=== PATIENT | male | born 1960 | race Two or more races ===

== ENCOUNTER 2020-11-06 13:41 | Inpatient (IN) | payer MEDICAID, OTHER ==
[~2020-11-06] VITALS: Ht 165.1 cm; Wt 80.7 kg
[2020-11-06 14:37] LABS: Basophils # (auto) 0 10 ^3/uL (0-0.2); Basophils % (auto) 0.2 % (0.0-2.0); Eosinophils # (auto) 0 10 ^3/uL (0-0.8); Eosinophils % (auto) 0.3 % (0.0-7.0); Hematocrit 44.8 % (41.0-53.0); Hemoglobin 15.9 g/dL (13.5-17.5); Lymphocytes # (auto) 0.9 10 ^3/uL (0.4-5.4); Lymphocytes % (auto) 16.3 % (10.0-50.0); Mean Corpuscular Hemoglobin 33.5 pg (28.0-32.0); Mean Corpuscular Hgb Conc. 35.6 g/dL (32.0-36.0); Mean Corpuscular Volume 94.3 fL (80.0-100.0); Monocytes # (auto) 0.3 10 ^3/uL (0-1.3); Neutrophils # (auto) 4.4 10 ^3/uL (1.6-8.6); Neutrophils % (auto) 78.2 % (37.0-80.0); Nucleated Red Blood Cells % 0.1 %; Platelet Count (auto) 150 10^3/uL (140-450); Red Blood Cells 4.75 10^6/uL (4.5-5.90); White Blood Cell 5.6 10^3/uL (4.4-10.8)
[2020-11-06 14:43] LABS: Albumin 2.9 g/dL (3.4-5.0); Anion Gap 10 (5-15); Blood Urea Nitrogen 6 mg/dL (7-18); Carbon Dioxide 20 mmol/L (21-32); Chloride 108 mmol/L (98-107); Glucose 118 mg/dL (74-106); Potassium 3.4 mmol/L (3.5-5.1); Sodium 138 mmol/L (136-145)
[2020-11-06 14:49] LABS: Alanine Aminotransferase 32 U/L (16-61); Alkaline Phosphatase 50 U/L (45-117); Aspartate Aminotransferase 48 U/L (15-37); BUN/Creatinine Ratio 7.3; Bilirubin, Total 0.6 mg/dL (0.2-1.0); GFR African American 123 mL/min; GFR Non-African American 102 mL/min; Total Protein 7.4 g/dL (6.4-8.2)
[2020-11-06 15:17] LABS: Urine Bacteria NONE SEEN /hpf (None Seen); Urine Blood Negative /uL (Negative); Urine Specific Gravity 1.007 (1.001-1.035); Urine WBC <1 /hpf (0 - 3)
[2020-11-06] MEDS ORDERED: IOHEXOL 300 MG/ML 100ML BOTTLE IJ ONE (16:48)
[2020-11-06] MEDS ORDERED: cefTRIAXone 1GM/50ML D5W 50 ML IV ONE (17:45)
[2020-11-06] MEDS ORDERED: AZITHROMYCIN 500MG/ 250ML 250 ML IV ONE (17:45)
[2020-11-06] MEDS ORDERED: MORPHINE SULF INJ 2 MG/ML SYRINGE 1ML IV PRN (18:45)
[2020-11-06] MEDS ORDERED: REMDESIVIR PER PHARMACY 0 ML IV SCH (18:45)
[2020-11-06] MEDS ORDERED: NITROGLYCERIN 0.4 MG SL TAB SL PRN (18:45)
[2020-11-06] MEDS ORDERED: IVERMECTIN 3 MG TAB PO ONE (18:52)
[2020-11-06] MEDS: ASCORBIC ACID 1,000 MG TAB PO SCH (19:04)
[2020-11-06] MEDS: DexAMETHasone SOD PHOS 10MG/1ML VIAL INJ IV SCH (19:04)
[2020-11-06] MEDS: CHOLECALCIFEROL (VITD3) 2,000 UNIT CAP/TAB PO SCH (19:04)
[2020-11-06] MEDS ORDERED: REMDESIVIR 200 MG in NS 210ml LOADING DOSE ADULT IV ONE (20:00)
[2020-11-06] MEDS: ZINC SULFATE 220mg CAP or TAB PO SCH (20:20)
[2020-11-06] MEDS: ENOXAPARIN SOD 40 MG/0.4 ML SYRINGE SC SCH (20:20)
[2020-11-06 20:30] VITALS: BP 111/66
[2020-11-06 21:10] LABS: Magnesium 2.1 mg/dL (1.6-2.6)
[2020-11-06 21:19] LABS: CRP High Sensitivity 12.5 mg/dL (< 0.3)
[2020-11-06 22:00] VITALS: BP 111/66
[2020-11-06] MEDS ORDERED: IPRATROPIUM BROMIDE HFA AER IN SCH (22:00)
[2020-11-06] MEDS: BUDESONIDE (INHALATION) 180 MCG IH IN SCH (22:00)
[2020-11-06] MEDS ORDERED: INFLUENZA QUAD 2020-2021 0.5 ML SYRG IM ONE (22:15)
[2020-11-07] VITALS (8 sets, daily range): BP systolic 100–116; BP diastolic 53–72
[2020-11-07 06:50] LABS: Basophils # (auto) 0 10 ^3/uL (0-0.2); Basophils % (auto) 0.2 % (0.0-2.0); Eosinophils # (auto) 0 10 ^3/uL (0-0.8); Hematocrit 44.5 % (41.0-53.0); Hemoglobin 15.6 g/dL (13.5-17.5); Lymphocytes # (auto) 0.5 10 ^3/uL (0.4-5.4); Lymphocytes % (auto) 20.4 % (10.0-50.0); Mean Corpuscular Hemoglobin 33.1 pg (28.0-32.0); Mean Corpuscular Hgb Conc. 35.1 g/dL (32.0-36.0); Mean Corpuscular Volume 94.3 fL (80.0-100.0); Monocytes # (auto) 0.2 10 ^3/uL (0-1.3); Monocytes % (auto) 8.5 % (0.0-12.0); Neutrophils # (auto) 1.9 10 ^3/uL (1.6-8.6); Neutrophils % (auto) 70.9 % (37.0-80.0); Nucleated Red Blood Cells % 0.2 %; Platelet Count (auto) 182 10^3/uL (140-450); Red Blood Cells 4.72 10^6/uL (4.5-5.90); Red Cell Distribution Width 12.8 % (11.8-14.3); White Blood Cell 2.7 10^3/uL (4.4-10.8)
[2020-11-07] MEDS: ENOXAPARIN SOD 40 MG/0.4 ML SYRINGE SC SCH ×2 (06:57→18:13)
[2020-11-07] MEDS ORDERED: IVERMECTIN 3 MG TAB PO ONE (07:00)
[2020-11-07 07:10] LABS: Albumin 2.5 g/dL (3.4-5.0); Calcium 8.3 mg/dL (8.5-10.1); Potassium 4.2 mmol/L (3.5-5.1)
[2020-11-07 07:13] LABS: BUN/Creatinine Ratio 10.6
[2020-11-07 07:15] LABS: Bilirubin, Total 0.4 mg/dL (0.2-1.0); Total Protein 6.9 g/dL (6.4-8.2)
[2020-11-07] MEDS: BUDESONIDE (INHALATION) 180 MCG IH IN SCH ×2 (07:36→19:16)
[2020-11-07] MEDS: DexAMETHasone SOD PHOS 10MG/1ML VIAL INJ IV SCH (10:15)
[2020-11-07] MEDS: ZINC SULFATE 220mg CAP or TAB PO SCH (10:15)
[2020-11-07] MEDS: cefTRIAXone 1GM/50ML D5W 50 ML IV SCH (10:15)
[2020-11-07] MEDS: ASCORBIC ACID 1,000 MG TAB PO SCH (10:15)
[2020-11-07] MEDS: AZITHROMYCIN 500MG/ 250ML 250 ML IV SCH (10:15)
[2020-11-07] MEDS: CHOLECALCIFEROL (VITD3) 2,000 UNIT CAP/TAB PO SCH (10:16)
[2020-11-07] MEDS: REMDESIVIR 100mg 100 MG in SODIUM CHL 0.9% 230 ML IV SCH (15:15)
[2020-11-07] MEDS: TAMSULOSIN HYDROCHLORIDE 0.4 MG CAP PO SCH (18:13)
[2020-11-07] MEDS: ALBUTEROL SULF HFA 90MCG INH 200DOSE IN PRN (19:15)
[2020-11-08] VITALS (7 sets, daily range): BP systolic 90–119; BP diastolic 47–71
[2020-11-08] MEDS: ENOXAPARIN SOD 40 MG/0.4 ML SYRINGE SC SCH ×2 (05:59→18:23)
[2020-11-08 07:14] LABS: Potassium 3.6 mmol/L (3.5-5.1)
[2020-11-08 07:15] LABS: Basophils # (auto) 0 10 ^3/uL (0-0.2); Basophils % (auto) 0.1 % (0.0-2.0); Eosinophils # (auto) 0 10 ^3/uL (0-0.8); Hematocrit 43.2 % (41.0-53.0); Hemoglobin 15.4 g/dL (13.5-17.5); Lymphocytes # (auto) 0.9 10 ^3/uL (0.4-5.4); Lymphocytes % (auto) 11.9 % (10.0-50.0); Mean Corpuscular Hemoglobin 33.3 pg (28.0-32.0); Mean Corpuscular Hgb Conc. 35.6 g/dL (32.0-36.0); Mean Corpuscular Volume 93.5 fL (80.0-100.0); Monocytes # (auto) 0.7 10 ^3/uL (0-1.3); Monocytes % (auto) 9.5 % (0.0-12.0); Neutrophils # (auto) 5.7 10 ^3/uL (1.6-8.6); Neutrophils % (auto) 78.5 % (37.0-80.0); Nucleated Red Blood Cells % 0.1 %; Platelet Count (auto) 255 10^3/uL (140-450); Red Blood Cells 4.62 10^6/uL (4.5-5.90); Red Cell Distribution Width 12.9 % (11.8-14.3); White Blood Cell 7.3 10^3/uL (4.4-10.8)
[2020-11-08 07:20] LABS: BUN/Creatinine Ratio 18.8; Calcium 8.3 mg/dL (8.5-10.1)
[2020-11-08] MEDS: ZINC SULFATE 220mg CAP or TAB PO SCH (09:15)
[2020-11-08] MEDS: CHOLECALCIFEROL (VITD3) 2,000 UNIT CAP/TAB PO SCH (09:15)
[2020-11-08] MEDS: cefTRIAXone 1GM/50ML D5W 50 ML IV SCH (09:15)
[2020-11-08] MEDS: ASCORBIC ACID 1,000 MG TAB PO SCH (09:15)
[2020-11-08] MEDS: DexAMETHasone SOD PHOS 10MG/1ML VIAL INJ IV SCH (09:16)
[2020-11-08] MEDS: ALBUTEROL SULF HFA 90MCG INH 200DOSE IN PRN ×2 (09:33→19:16)
[2020-11-08] MEDS: BUDESONIDE (INHALATION) 180 MCG IH IN SCH ×2 (09:33→19:14)
[2020-11-08] MEDS: AZITHROMYCIN 500MG/ 250ML 250 ML IV SCH (10:15)
[2020-11-08] MEDS: REMDESIVIR 100mg 100 MG in SODIUM CHL 0.9% 230 ML IV SCH (15:17)
[2020-11-08] MEDS: TAMSULOSIN HYDROCHLORIDE 0.4 MG CAP PO SCH (18:23)
[2020-11-09 06:15] LABS: Basophils # (auto) 0 10 ^3/uL (0-0.2); Eosinophils # (auto) 0 10 ^3/uL (0-0.8); Hematocrit 43.9 % (41.0-53.0); Hemoglobin 15.5 g/dL (13.5-17.5); Lymphocytes # (auto) 1.2 10 ^3/uL (0.4-5.4); Lymphocytes % (auto) 12.6 % (10.0-50.0); Mean Corpuscular Hgb Conc. 35.3 g/dL (32.0-36.0); Mean Corpuscular Volume 93.5 fL (80.0-100.0); Monocytes # (auto) 0.9 10 ^3/uL (0-1.3); Monocytes % (auto) 9.1 % (0.0-12.0); Neutrophils # (auto) 7.4 10 ^3/uL (1.6-8.6); Neutrophils % (auto) 78.3 % (37.0-80.0); Nucleated Red Blood Cells % 0.1 %; Platelet Count (auto) 289 10^3/uL (140-450); Red Cell Distribution Width 13.1 % (11.8-14.3); White Blood Cell 9.4 10^3/uL (4.4-10.8)
[2020-11-09] MEDS: ENOXAPARIN SOD 40 MG/0.4 ML SYRINGE SC SCH ×2 (06:28→17:43)
[2020-11-09 06:36] LABS: Potassium 3.6 mmol/L (3.5-5.1)
[2020-11-09 07:01] LABS: Albumin 2.7 g/dL (3.4-5.0)
[2020-11-09 07:05] LABS: Bilirubin, Direct 0.2 mg/dL (0-0.2); Bilirubin, Total 0.4 mg/dL (0.2-1.0); Total Protein 6.8 g/dL (6.4-8.2)
[2020-11-09] MEDS: BUDESONIDE (INHALATION) 180 MCG IH IN SCH ×2 (07:28→19:31)
[2020-11-09 08:10] VITALS: BP 101/69
[2020-11-09] MEDS: ASCORBIC ACID 1,000 MG TAB PO SCH (08:31)
[2020-11-09] MEDS: cefTRIAXone 1GM/50ML D5W 50 ML IV SCH (08:31)
[2020-11-09] MEDS: ZINC SULFATE 220mg CAP or TAB PO SCH (08:31)
[2020-11-09] MEDS: CHOLECALCIFEROL (VITD3) 2,000 UNIT CAP/TAB PO SCH (08:31)
[2020-11-09] MEDS: DexAMETHasone SOD PHOS 10MG/1ML VIAL INJ IV SCH (08:32)
[2020-11-09] MEDS ORDERED: DIVA250T4 PO ×2 (09:47)
[2020-11-09] MEDS ORDERED: GABA300C10 PO (09:47)
[2020-11-09] MEDS ORDERED: LEVO25TA6 PO (09:47)
[2020-11-09] MEDS ORDERED: TRAZ-181 PO (09:47)
[2020-11-09] MEDS ORDERED: RIS1T PO ×2 (09:47)
[2020-11-09] MEDS ORDERED: PANT1INJ3 PO (09:47)
[2020-11-09] MEDS: AZITHROMYCIN 500MG/ 250ML 250 ML IV SCH (10:03)
[2020-11-09] MEDS ORDERED: FUROSEMIDE 20 MG/2 ML VIAL IV ONE (11:00)
[2020-11-09 13:00] VITALS: BP 107/71
[2020-11-09] MEDS ORDERED: PANTOPRAZOLE 40 MG TAB PO ONE (13:45)
[2020-11-09] MEDS ORDERED: guaiFENesin 200 MG/10 ML UD PO PRN (13:45)
[2020-11-09] MEDS: REMDESIVIR 100mg 100 MG in SODIUM CHL 0.9% 230 ML IV SCH (15:16)
[2020-11-09 17:12] VITALS: BP 103/62
[2020-11-09] MEDS: TAMSULOSIN HYDROCHLORIDE 0.4 MG CAP PO SCH (17:43)
[2020-11-09] MEDS: ALBUTEROL SULF HFA 90MCG INH 200DOSE IN PRN (19:31)
[2020-11-09 20:51] VITALS: BP 96/54
[2020-11-10] MEDS: ENOXAPARIN SOD 40 MG/0.4 ML SYRINGE SC SCH ×2 (05:49→19:14)
[2020-11-10 05:59] VITALS: BP 113/74
[2020-11-10] MEDS: BUDESONIDE (INHALATION) 180 MCG IH IN SCH ×2 (07:25→19:09)
[2020-11-10 07:34] LABS: Albumin 2.8 g/dL (3.4-5.0); Calcium 8.5 mg/dL (8.5-10.1); Potassium 3.6 mmol/L (3.5-5.1)
[2020-11-10 07:49] LABS: BUN/Creatinine Ratio 26.7; Bilirubin, Total 0.5 mg/dL (0.2-1.0); Total Protein 6.9 g/dL (6.4-8.2)
[2020-11-10 08:05] LABS: Basophils # (auto) 0 10 ^3/uL (0-0.2); Basophils % (auto) 0.1 % (0.0-2.0); Eosinophils # (auto) 0 10 ^3/uL (0-0.8); Eosinophils % (auto) 0.3 % (0.0-7.0); Hematocrit 44.7 % (41.0-53.0); Hemoglobin 15.7 g/dL (13.5-17.5); Lymphocytes # (auto) 1.7 10 ^3/uL (0.4-5.4); Lymphocytes % (auto) 17.2 % (10.0-50.0); Mean Corpuscular Hemoglobin 32.9 pg (28.0-32.0); Mean Corpuscular Hgb Conc. 35.2 g/dL (32.0-36.0); Mean Corpuscular Volume 93.4 fL (80.0-100.0); Monocytes # (auto) 0.9 10 ^3/uL (0-1.3); Monocytes % (auto) 8.9 % (0.0-12.0); Neutrophils # (auto) 7.3 10 ^3/uL (1.6-8.6); Neutrophils % (auto) 73.5 % (37.0-80.0); Nucleated Red Blood Cells % 0.6 %; Platelet Count (auto) 310 10^3/uL (140-450); Red Blood Cells 4.78 10^6/uL (4.5-5.90); Red Cell Distribution Width 13.2 % (11.8-14.3); White Blood Cell 9.9 10^3/uL (4.4-10.8)
[2020-11-10] MEDS: cefTRIAXone 1GM/50ML D5W 50 ML IV SCH (08:51)
[2020-11-10 09:00] VITALS: BP 109/68
[2020-11-10] MEDS ORDERED: FUROSEMIDE 20 MG/2 ML VIAL IV SCH (10:00)
[2020-11-10] MEDS: DexAMETHasone SOD PHOS 10MG/1ML VIAL INJ IV SCH (10:58)
[2020-11-10] MEDS: PANTOPRAZOLE 40 MG TAB PO SCH (10:59)
[2020-11-10] MEDS: ASCORBIC ACID 1,000 MG TAB PO SCH (10:59)
[2020-11-10] MEDS: AZITHROMYCIN 500MG/ 250ML 250 ML IV SCH (10:59)
[2020-11-10] MEDS: ZINC SULFATE 220mg CAP or TAB PO SCH (10:59)
[2020-11-10] MEDS: CHOLECALCIFEROL (VITD3) 2,000 UNIT CAP/TAB PO SCH (11:00)
[2020-11-10 13:34] VITALS: BP 103/62
[2020-11-10 14:01] VITALS: BP 103/62
[2020-11-10] MEDS: REMDESIVIR 100mg 100 MG in SODIUM CHL 0.9% 230 ML IV SCH (15:37)
[2020-11-10 17:00] VITALS: BP 113/70
[2020-11-10] MEDS: ALBUTEROL SULF HFA 90MCG INH 200DOSE IN PRN (19:09)
[2020-11-10] MEDS: TAMSULOSIN HYDROCHLORIDE 0.4 MG CAP PO SCH (19:14)
[2020-11-10 22:38] VITALS: BP 95/54
[2020-11-11] MEDS: ENOXAPARIN SOD 40 MG/0.4 ML SYRINGE SC SCH ×2 (06:22→18:48)
[2020-11-11 07:00] VITALS: BP 102/65
[2020-11-11 07:11] LABS: Hematocrit 44.6 % (41.0-53.0); Mean Corpuscular Hemoglobin 33.5 pg (28.0-32.0); Mean Corpuscular Hgb Conc. 35.9 g/dL (32.0-36.0); Mean Corpuscular Volume 93.3 fL (80.0-100.0); Platelet Count (auto) 312 10^3/uL (140-450); Red Blood Cells 4.78 10^6/uL (4.5-5.90); Red Cell Distribution Width 13.1 % (11.8-14.3); White Blood Cell 8.1 10^3/uL (4.4-10.8)
[2020-11-11 07:19] LABS: Calcium 8.3 mg/dL (8.5-10.1); Potassium 3.3 mmol/L (3.5-5.1)
[2020-11-11 07:22] LABS: Band Neutrophils % (manual) 0; Basophils % (manual) 0 (0.0-2.0); Blast Cells 0; Metamyelocytes % 0; Myelocytes % 0; Promyelocytes % 0
[2020-11-11] MEDS: ALBUTEROL SULF HFA 90MCG INH 200DOSE IN PRN ×2 (08:35→20:03)
[2020-11-11] MEDS: BUDESONIDE (INHALATION) 180 MCG IH IN SCH ×2 (08:36→20:03)
[2020-11-11 09:00] VITALS: BP 98/70
[2020-11-11 09:05] LABS: Eosinophils % (manual) 4 (0-7); Lymphocytes % (manual) 20 (10.0-50.0); Monocytes % (manual) 3 (0-12); Reactive Lymphocytes 5
[2020-11-11] MEDS: cefTRIAXone 1GM/50ML D5W 50 ML IV SCH (09:07)
[2020-11-11] MEDS: ZINC SULFATE 220mg CAP or TAB PO SCH (09:08)
[2020-11-11] MEDS: PANTOPRAZOLE 40 MG TAB PO SCH (09:08)
[2020-11-11] MEDS: DexAMETHasone SOD PHOS 10MG/1ML VIAL INJ IV SCH (09:08)
[2020-11-11] MEDS: CHOLECALCIFEROL (VITD3) 2,000 UNIT CAP/TAB PO SCH (09:09)
[2020-11-11] MEDS: ASCORBIC ACID 1,000 MG TAB PO SCH (09:09)
[2020-11-11] MEDS: AZITHROMYCIN 500MG/ 250ML 250 ML IV SCH (09:32)
[2020-11-11] MEDS ORDERED: ENOXAPARIN SOD 80 MG/0.8ML SYRINGE SC ONE (10:45)
[2020-11-11] MEDS ORDERED: POTASSIUM CHL 20 Meq TABLET PO ONE (10:45)
[2020-11-11] MEDS ORDERED: ENOXAPARIN SOD 100 MG/1 ML SYRINGE SC ONE (10:45)
[2020-11-11] MEDS ORDERED: IOHEXOL 350 MG/ML 100ML IJ ONE (11:30)
[2020-11-11 12:58] VITALS: BP 108/74
[2020-11-11 16:45] VITALS: BP 113/58
[2020-11-11] MEDS: TAMSULOSIN HYDROCHLORIDE 0.4 MG CAP PO SCH (17:25)
[2020-11-11 21:45] VITALS: BP_SYST 102; BP_SYST 99; BP_DIAS 51; BP_DIAS 54
[2020-11-12 05:00] VITALS: BP 87/56
[2020-11-12] MEDS: ENOXAPARIN SOD 40 MG/0.4 ML SYRINGE SC SCH ×2 (06:21→18:18)
[2020-11-12] MEDS: BUDESONIDE (INHALATION) 180 MCG IH IN SCH ×2 (06:30→22:00)
[2020-11-12 06:36] VITALS: BP 90/61
[2020-11-12 06:47] LABS: Hematocrit 43.7 % (41.0-53.0); Hemoglobin 15.5 g/dL (13.5-17.5); Mean Corpuscular Hemoglobin 33.4 pg (28.0-32.0); Mean Corpuscular Hgb Conc. 35.6 g/dL (32.0-36.0); Platelet Count (auto) 342 10^3/uL (140-450); Red Blood Cells 4.65 10^6/uL (4.5-5.90); Red Cell Distribution Width 13.5 % (11.8-14.3); White Blood Cell 8.7 10^3/uL (4.4-10.8)
[2020-11-12 06:56] LABS: Basophils % (manual) 0 (0.0-2.0); Blast Cells 0; Myelocytes % 0; Promyelocytes % 0
[2020-11-12 07:06] LABS: Potassium 3.7 mmol/L (3.5-5.1)
[2020-11-12 07:15] LABS: BUN/Creatinine Ratio 20.8; CRP High Sensitivity 2.19 mg/dL (< 0.3)
[2020-11-12 09:26] VITALS: BP 88/53
[2020-11-12] MEDS: cefTRIAXone 1GM/50ML D5W 50 ML IV SCH (09:42)
[2020-11-12] MEDS: DexAMETHasone SOD PHOS 10MG/1ML VIAL INJ IV SCH (09:42)
[2020-11-12] MEDS: ASCORBIC ACID 1,000 MG TAB PO SCH (09:44)
[2020-11-12] MEDS: ZINC SULFATE 220mg CAP or TAB PO SCH (09:44)
[2020-11-12] MEDS: PANTOPRAZOLE 40 MG TAB PO SCH (09:44)
[2020-11-12] MEDS: CHOLECALCIFEROL (VITD3) 2,000 UNIT CAP/TAB PO SCH (09:44)
[2020-11-12 10:12] LABS: Band Neutrophils % (manual) 5; Eosinophils % (manual) 1 (0-7); Lymphocytes % (manual) 14 (10.0-50.0); Metamyelocytes % 1; Monocytes % (manual) 5 (0-12); Reactive Lymphocytes 1
[2020-11-12 13:13] VITALS: BP 141/74
[2020-11-12] MEDS ORDERED: FUROSEMIDE 20 MG/2 ML VIAL IV ONE (14:15)
[2020-11-12 16:23] VITALS: BP 108/71
[2020-11-12] MEDS: TAMSULOSIN HYDROCHLORIDE 0.4 MG CAP PO SCH (18:18)
[2020-11-12 22:00] VITALS: BP 112/70
[2020-11-13 05:00] VITALS: BP 97/60
[2020-11-13 05:55] LABS: Hematocrit 45.8 % (41.0-53.0); Hemoglobin 16.3 g/dL (13.5-17.5); Mean Corpuscular Hemoglobin 33.5 pg (28.0-32.0); Mean Corpuscular Hgb Conc. 35.7 g/dL (32.0-36.0); Mean Corpuscular Volume 93.9 fL (80.0-100.0); Platelet Count (auto) 396 10^3/uL (140-450); Red Blood Cells 4.88 10^6/uL (4.5-5.90); Red Cell Distribution Width 13.1 % (11.8-14.3); White Blood Cell 8.5 10^3/uL (4.4-10.8)
[2020-11-13 06:11] LABS: Basophils % (manual) 0 (0.0-2.0); Blast Cells 0; Promyelocytes % 0; Reactive Lymphocytes 0
[2020-11-13 06:19] LABS: BUN/Creatinine Ratio 23.6; Potassium 3.5 mmol/L (3.5-5.1)
[2020-11-13 06:45] LABS: Band Neutrophils % (manual) 9; Eosinophils % (manual) 1 (0-7); Lymphocytes % (manual) 17 (10.0-50.0); Metamyelocytes % 2; Monocytes % (manual) 5 (0-12); Myelocytes % 1
[2020-11-13] MEDS: BUDESONIDE (INHALATION) 180 MCG IH IN SCH ×2 (07:13→18:49)
[2020-11-13] MEDS: ENOXAPARIN SOD 40 MG/0.4 ML SYRINGE SC SCH ×2 (07:36→18:20)
[2020-11-13 08:00] VITALS: BP 106/55
[2020-11-13] MEDS: cefTRIAXone 1GM/50ML D5W 50 ML IV SCH (10:01)
[2020-11-13] MEDS: DexAMETHasone SOD PHOS 10MG/1ML VIAL INJ IV SCH (10:02)
[2020-11-13] MEDS: FUROSEMIDE 20 MG/2 ML VIAL IV SCH (10:02)
[2020-11-13] MEDS: ZINC SULFATE 220mg CAP or TAB PO SCH (10:02)
[2020-11-13] MEDS: CHOLECALCIFEROL (VITD3) 2,000 UNIT CAP/TAB PO SCH (10:03)
[2020-11-13] MEDS: PANTOPRAZOLE 40 MG TAB PO SCH (10:03)
[2020-11-13] MEDS: ASCORBIC ACID 1,000 MG TAB PO SCH (10:03)
[2020-11-13 10:49] VITALS: BP 106/57
[2020-11-13 12:00] VITALS: BP 114/73
[2020-11-13 16:00] VITALS: BP 113/53
[2020-11-13] MEDS: TAMSULOSIN HYDROCHLORIDE 0.4 MG CAP PO SCH (18:19)
[2020-11-13] MEDS: ALBUTEROL SULF HFA 90MCG INH 200DOSE IN PRN (18:49)
[2020-11-13 22:00] VITALS: BP 100/67
[2020-11-14 05:00] VITALS: BP 103/68
[2020-11-14] MEDS: BUDESONIDE (INHALATION) 180 MCG IH IN SCH ×2 (06:12→21:42)
[2020-11-14] MEDS: ALBUTEROL SULF HFA 90MCG INH 200DOSE IN PRN ×2 (06:12→21:42)
[2020-11-14] MEDS: ENOXAPARIN SOD 40 MG/0.4 ML SYRINGE SC SCH ×2 (06:14→17:58)
[2020-11-14 08:00] VITALS: BP_SYST 106; BP_SYST 109; BP_DIAS 55; BP_DIAS 69
[2020-11-14] MEDS: PANTOPRAZOLE 40 MG TAB PO SCH (09:35)
[2020-11-14] MEDS: cefTRIAXone 1GM/50ML D5W 50 ML IV SCH (09:35)
[2020-11-14] MEDS: ZINC SULFATE 220mg CAP or TAB PO SCH (09:35)
[2020-11-14] MEDS: DexAMETHasone SOD PHOS 10MG/1ML VIAL INJ IV SCH (09:35)
[2020-11-14] MEDS: ASCORBIC ACID 1,000 MG TAB PO SCH (09:36)
[2020-11-14] MEDS: FUROSEMIDE 20 MG/2 ML VIAL IV SCH (09:36)
[2020-11-14] MEDS: CHOLECALCIFEROL (VITD3) 2,000 UNIT CAP/TAB PO SCH (09:36)
[2020-11-14 12:00] VITALS: BP 99/87
[2020-11-14 16:00] VITALS: BP 99/68
[2020-11-14] MEDS: TAMSULOSIN HYDROCHLORIDE 0.4 MG CAP PO SCH (17:57)
[2020-11-14 22:00] VITALS: BP 104/66
[2020-11-15] VITALS (7 sets, daily range): BP systolic 95–112; BP diastolic 57–78
[2020-11-15] MEDS: ENOXAPARIN SOD 40 MG/0.4 ML SYRINGE SC SCH ×2 (06:14→18:06)
[2020-11-15] MEDS: ALBUTEROL SULF HFA 90MCG INH 200DOSE IN PRN ×2 (07:25→20:59)
[2020-11-15] MEDS: BUDESONIDE (INHALATION) 180 MCG IH IN SCH ×2 (07:25→20:59)
[2020-11-15] MEDS: cefTRIAXone 1GM/50ML D5W 50 ML IV SCH (10:34)
[2020-11-15] MEDS: DexAMETHasone SOD PHOS 10MG/1ML VIAL INJ IV SCH (10:34)
[2020-11-15] MEDS: FUROSEMIDE 20 MG/2 ML VIAL IV SCH (10:36)
[2020-11-15] MEDS: ZINC SULFATE 220mg CAP or TAB PO SCH (10:36)
[2020-11-15] MEDS: ASCORBIC ACID 1,000 MG TAB PO SCH (10:43)
[2020-11-15] MEDS: PANTOPRAZOLE 40 MG TAB PO SCH (10:43)
[2020-11-15] MEDS: CHOLECALCIFEROL (VITD3) 2,000 UNIT CAP/TAB PO SCH (10:44)
[2020-11-15] MEDS: TAMSULOSIN HYDROCHLORIDE 0.4 MG CAP PO SCH (18:06)
[2020-11-16 05:00] VITALS: BP 124/65
[2020-11-16] MEDS: ENOXAPARIN SOD 40 MG/0.4 ML SYRINGE SC SCH ×2 (06:05→17:36)
[2020-11-16 06:10] LABS: Basophils # (auto) 0 10 ^3/uL (0-0.2); Basophils % (auto) 0.4 % (0.0-2.0); Eosinophils # (auto) 0 10 ^3/uL (0-0.8); Eosinophils % (auto) 0.5 % (0.0-7.0); Hematocrit 43.9 % (41.0-53.0); Hemoglobin 15.4 g/dL (13.5-17.5); Lymphocytes # (auto) 1.9 10 ^3/uL (0.4-5.4); Lymphocytes % (auto) 19.2 % (10.0-50.0); Mean Corpuscular Hemoglobin 32.9 pg (28.0-32.0); Mean Corpuscular Volume 94.1 fL (80.0-100.0); Monocytes # (auto) 0.9 10 ^3/uL (0-1.3); Monocytes % (auto) 8.9 % (0.0-12.0); Nucleated Red Blood Cells % 0.1 %; Platelet Count (auto) 377 10^3/uL (140-450); Red Blood Cells 4.67 10^6/uL (4.5-5.90); Red Cell Distribution Width 13.3 % (11.8-14.3); White Blood Cell 9.8 10^3/uL (4.4-10.8)
[2020-11-16] MEDS: ALBUTEROL SULF HFA 90MCG INH 200DOSE IN PRN ×2 (06:28→20:31)
[2020-11-16] MEDS: BUDESONIDE (INHALATION) 180 MCG IH IN SCH ×2 (06:28→20:30)
[2020-11-16 06:30] LABS: BUN/Creatinine Ratio 22.9; Calcium 8.2 mg/dL (8.5-10.1); Potassium 3.5 mmol/L (3.5-5.1)
[2020-11-16 09:00] VITALS: BP 99/66
[2020-11-16] MEDS: PANTOPRAZOLE 40 MG TAB PO SCH (11:11)
[2020-11-16] MEDS: DexAMETHasone SOD PHOS 10MG/1ML VIAL INJ IV SCH (11:11)
[2020-11-16] MEDS: ASCORBIC ACID 1,000 MG TAB PO SCH (11:11)
[2020-11-16] MEDS: CHOLECALCIFEROL (VITD3) 2,000 UNIT CAP/TAB PO SCH (11:11)
[2020-11-16] MEDS: FUROSEMIDE 20 MG/2 ML VIAL IV SCH (11:11)
[2020-11-16] MEDS: cefTRIAXone 1GM/50ML D5W 50 ML IV SCH (11:11)
[2020-11-16] MEDS: ZINC SULFATE 220mg CAP or TAB PO SCH (11:12)
[2020-11-16 13:11] VITALS: BP 104/71
[2020-11-16 16:45] VITALS: BP 104/70
[2020-11-16] MEDS: TAMSULOSIN HYDROCHLORIDE 0.4 MG CAP PO SCH (17:35)
[2020-11-16 19:30] VITALS: BP_DIAS 66
[2020-11-16 22:00] VITALS: BP 110/68
[2020-11-17 05:12] VITALS: BP 100/66
[2020-11-17] MEDS: ENOXAPARIN SOD 40 MG/0.4 ML SYRINGE SC SCH (06:32)
[2020-11-17 07:29] LABS: Potassium 3.8 mmol/L (3.5-5.1)
[2020-11-17] MEDS: BUDESONIDE (INHALATION) 180 MCG IH IN SCH (07:29)
[2020-11-17 07:42] LABS: Basophils # (auto) 0.1 10 ^3/uL (0-0.2); Basophils % (auto) 0.5 % (0.0-2.0); Eosinophils # (auto) 0 10 ^3/uL (0-0.8); Eosinophils % (auto) 0.2 % (0.0-7.0); Hemoglobin 15.8 g/dL (13.5-17.5); Lymphocytes # (auto) 2.1 10 ^3/uL (0.4-5.4); Lymphocytes % (auto) 21.3 % (10.0-50.0); Mean Corpuscular Hemoglobin 33.1 pg (28.0-32.0); Mean Corpuscular Hgb Conc. 35.2 g/dL (32.0-36.0); Mean Corpuscular Volume 94.1 fL (80.0-100.0); Monocytes # (auto) 0.8 10 ^3/uL (0-1.3); Monocytes % (auto) 7.6 % (0.0-12.0); Neutrophils # (auto) 6.9 10 ^3/uL (1.6-8.6); Neutrophils % (auto) 70.4 % (37.0-80.0); Nucleated Red Blood Cells % 0.1 %; Platelet Count (auto) 361 10^3/uL (140-450); Red Blood Cells 4.78 10^6/uL (4.5-5.90); Red Cell Distribution Width 13.5 % (11.8-14.3); White Blood Cell 9.9 10^3/uL (4.4-10.8)
[2020-11-17 07:49] LABS: BUN/Creatinine Ratio 27.8; Calcium 8.2 mg/dL (8.5-10.1)
[2020-11-17 07:56] VITALS: BP_DIAS 66
[2020-11-17 09:00] VITALS: BP 106/74
[2020-11-17] MEDS: cefTRIAXone 1GM/50ML D5W 50 ML IV SCH (09:11)
[2020-11-17] MEDS: DexAMETHasone SOD PHOS 10MG/1ML VIAL INJ IV SCH (09:12)
[2020-11-17] MEDS: FUROSEMIDE 20 MG/2 ML VIAL IV SCH (09:12)
[2020-11-17] MEDS: ZINC SULFATE 220mg CAP or TAB PO SCH (09:13)
[2020-11-17] MEDS: PANTOPRAZOLE 40 MG TAB PO SCH (09:13)
[2020-11-17] MEDS: ASCORBIC ACID 1,000 MG TAB PO SCH (09:13)
[2020-11-17] MEDS: CHOLECALCIFEROL (VITD3) 2,000 UNIT CAP/TAB PO SCH (09:14)
[2020-11-17] MEDS ORDERED: ASCO10003 PO (12:07)
[2020-11-17] MEDS ORDERED: PRED20TA2 PO (12:07)
[2020-11-17] MEDS ORDERED: ALBUAER3 IN (12:07)
[2020-11-17] MEDS ORDERED: CHOL1CAP47 PO (12:07)
[2020-11-17 13:00] VITALS: BP 112/79
[2020-11-17 15:10] VITALS: BP 106/74
[2020-11-17 17:00] VITALS: BP 104/72
[2020-11-17] MEDS: TAMSULOSIN HYDROCHLORIDE 0.4 MG CAP PO SCH (18:32)
== END 2020-11-17 18:40 | disposition home or self-care (01) | DRG 137 ==
LOC: ER 13:41 → TELE 18:35 → TELE-EAST 20:30
PROVIDERS: ADMIT Nurse Practitioner Acute Care; ATTEND Internal Medicine Pulmonary Disease
PROC: XW033E5 Introduction of Remdesivir Anti-infective into Peripheral Vein, Percutaneous Approach, New Technology Group 5 (ICD-10-PCS; principal; 2020-11-06)
PROC: XW13325 Transfusion of Convalescent Plasma (Nonautologous) into Peripheral Vein, Percutaneous Approach, New Technology Group 5 (ICD-10-PCS; 2020-11-07)
DX: U07.1 COVID-19 (principal); J96.01 Acute respiratory failure with hypoxia; J12.82 Pneumonia due to coronavirus disease 2019; E44.0 Moderate protein-calorie malnutrition; D89.839 Cytokine release syndrome, grade unspecified; N28.1 Cyst of kidney, acquired; E55.9 Vitamin D deficiency, unspecified; E66.9 Obesity, unspecified; E87.6 Hypokalemia; N40.0 Benign prostatic hyperplasia without lower urinary tract symptoms; Z87.891 Personal history of nicotine dependence; Z90.49 Acquired absence of other specified parts of digestive tract; Z68.30 Body mass index [BMI] 30.0-30.9, adult; Z98.52 Vasectomy status
CPT/HCPCS: 36415; 36600; 71045; 71260; 71275; 74177; 80048; 80053; 80076; 81001; 82306; 82728; 82805; 83036; 83605; 83615; 83735; 84443; 84484; 85007; 85025; 85027; 85379; 86141; 86850; 86900; 86901; 87040; 87426; 93005; 93970; 94640; 96365; 96368; 96372; 96375; G0378; J0696; J1100